=== PATIENT | male | born 1965 | race African-American/Black ===

== ENCOUNTER → 2019-02-27 | Outpatient (CLI) | payer BC ==
[~2019-02-27] MED LIST: CEPH500C PO; ENLP10T; NF-ALLE180; SULF1TAB35 PO; WRF10T PO; WRF5T
== END ==
LOC: WOUNDCARE 13:18
PROVIDERS: ATTEND Surgery
DX: I87.332 Chronic venous hypertension (idiopathic) with ulcer and inflammation of left lower extremity (principal); L97.322 Non-pressure chronic ulcer of left ankle with fat layer exposed; D68.69 Other thrombophilia; Z86.72 Personal history of thrombophlebitis
CPT/HCPCS: 99204

== ENCOUNTER → 2019-02-27 | Outpatient (CLI) | payer BC ==
[2019-02-27 15:26] LABS: BASOPHILS % (AUTO) 0 % (0-10); EOSINOPHILS # (AUTO) 0.1 10^3/uL (0.0-0.3); EOSINOPHILS % (AUTO) 3 % (0-10); HEMATOCRIT 43 % (40-54); HEMOGLOBIN 13.6 G/DL (13.3-17.7); LYMPHOCYTES # (AUTO) 1.9 X 10^3 (1.0-4.0); LYMPHOCYTES % (AUTO) 39 % (12-44); MEAN CORPUSCULAR HEMOGLOBIN 27 PG (25-34); MEAN CORPUSCULAR HGB CONC 32 G/DL (32-36); MEAN CORPUSCULAR VOLUME 85 FL (80-99); MEAN PLATELET VOLUME 9.3 FL (7.4-10.4); MONOCYTES # (AUTO) 0.4 X 10^3 (0.0-1.0); MONOCYTES % (AUTO) 9 % (0-12); NEUTROPHILS # (AUTO) 2.4 X 10^3 (1.8-7.8); NEUTROPHILS % (AUTO) 48 % (42-75); PLATELET COUNT 264 10^3/uL (130-400); RED CELL DISTRIBUTION WIDTH 14.3 % (10.0-14.5); WHITE BLOOD COUNT 4.9 10^3/uL (4.3-11.0)
[2019-02-27 15:44] LABS: ALANINE AMINOTRANSFERASE 25 U/L (0-55); ALBUMIN 4.2 GM/DL (3.2-4.5); ALKALINE PHOSPHATASE 65 U/L (40-136); BILIRUBIN,TOTAL 0.4 MG/DL (0.1-1.0); BUN/CREATININE RATIO 11; CALCIUM 9.1 MG/DL (8.5-10.1); CARBON DIOXIDE 25 MMOL/L (21-32); CHLORIDE 107 MMOL/L (98-107); CREATININE SERUM 1.04 MG/DL (0.60-1.30); GFR ESTIMATED > 60; GLUCOSE 86 MG/DL (70-105); POTASSIUM 4.2 MMOL/L (3.6-5.0); SODIUM 141 MMOL/L (135-145); TOTAL PROTEIN 7.7 GM/DL (6.4-8.2)
== END ==
LOC: LAB 15:04
PROVIDERS: ATTEND Surgery
DX: L97.322 Non-pressure chronic ulcer of left ankle with fat layer exposed (principal); I87.332 Chronic venous hypertension (idiopathic) with ulcer and inflammation of left lower extremity
CPT/HCPCS: 36415; 80053; 83020; 85025

== ENCOUNTER → 2019-03-08 | Outpatient (CLI) | payer BC | LOC: WOUNDCARE 09:37 | PROVIDERS: ATTEND Surgery | DX: L97.322 Non-pressure chronic ulcer of left ankle with fat layer exposed (principal); I87.332 Chronic venous hypertension (idiopathic) with ulcer and inflammation of left lower extremity; D68.69 Other thrombophilia; I96 Gangrene, not elsewhere classified; Z86.72 Personal history of thrombophlebitis | CPT/HCPCS: 11042; 36415; 81240; 85307; 85610; 85613; 85670; 85705; 85730; 86146; 86147; 87070; 87077; 87186; 87205 ==

== ENCOUNTER → 2019-03-11 | Outpatient (CLI) | payer BC | LOC: WOUNDCARE 08:15 | PROVIDERS: ATTEND Surgery | DX: L97.322 Non-pressure chronic ulcer of left ankle with fat layer exposed (principal); I10 Essential (primary) hypertension; I82.409 Acute embolism and thrombosis of unspecified deep veins of unspecified lower extremity | CPT/HCPCS: 29581 ==

== ENCOUNTER → 2019-03-15 | Outpatient (CLI) | payer BC | LOC: WOUNDCARE 09:50 | PROVIDERS: ATTEND Surgery | DX: L97.322 Non-pressure chronic ulcer of left ankle with fat layer exposed (principal); I87.332 Chronic venous hypertension (idiopathic) with ulcer and inflammation of left lower extremity; D68.69 Other thrombophilia; I96 Gangrene, not elsewhere classified; Z86.72 Personal history of thrombophlebitis | CPT/HCPCS: 11042 ==

== ENCOUNTER → 2019-03-22 | Outpatient (CLI) | payer BC | LOC: WOUNDCARE 08:56 | PROVIDERS: ATTEND Nurse Practitioner | DX: L97.322 Non-pressure chronic ulcer of left ankle with fat layer exposed (principal); I87.332 Chronic venous hypertension (idiopathic) with ulcer and inflammation of left lower extremity; I96 Gangrene, not elsewhere classified; D68.69 Other thrombophilia; Z86.72 Personal history of thrombophlebitis | CPT/HCPCS: 11042; 11045 ==

== ENCOUNTER → 2019-03-29 | Outpatient (CLI) | payer BC | LOC: WOUNDCARE 10:03 | PROVIDERS: ATTEND Surgery | DX: L97.322 Non-pressure chronic ulcer of left ankle with fat layer exposed (principal); I87.332 Chronic venous hypertension (idiopathic) with ulcer and inflammation of left lower extremity; I96 Gangrene, not elsewhere classified; Z86.72 Personal history of thrombophlebitis | CPT/HCPCS: 11042 ==

== ENCOUNTER → 2019-04-05 | Outpatient (CLI) | payer BC | LOC: WOUNDCARE 09:58 | PROVIDERS: ATTEND Surgery | DX: L97.322 Non-pressure chronic ulcer of left ankle with fat layer exposed (principal); I87.332 Chronic venous hypertension (idiopathic) with ulcer and inflammation of left lower extremity; I96 Gangrene, not elsewhere classified; Z86.72 Personal history of thrombophlebitis | CPT/HCPCS: 29581 ==

== ENCOUNTER → 2019-04-12 | Outpatient (CLI) | payer BC | LOC: WOUNDCARE 10:03 | PROVIDERS: ATTEND Surgery | DX: L97.322 Non-pressure chronic ulcer of left ankle with fat layer exposed (principal); I87.332 Chronic venous hypertension (idiopathic) with ulcer and inflammation of left lower extremity; I96 Gangrene, not elsewhere classified; Z86.72 Personal history of thrombophlebitis | CPT/HCPCS: 99212 ==

== ENCOUNTER 2019-04-26 08:51 | Outpatient (RCR) | payer BC | END 2019-05-14 14:09 | disposition home or self-care (01) | PROVIDERS: ATTEND Surgery | DX: L97.329 Non-pressure chronic ulcer of left ankle with unspecified severity (principal); M25.572 Pain in left ankle and joints of left foot; Z86.718 Personal history of other venous thrombosis and embolism ==

== ENCOUNTER → 2019-04-26 | Outpatient (CLI) | payer BC | LOC: WOUNDCARE 09:55 | PROVIDERS: ATTEND Surgery | DX: I87.332 Chronic venous hypertension (idiopathic) with ulcer and inflammation of left lower extremity (principal); L97.322 Non-pressure chronic ulcer of left ankle with fat layer exposed; I96 Gangrene, not elsewhere classified; Z86.72 Personal history of thrombophlebitis | CPT/HCPCS: 99213 ==

== ENCOUNTER → 2019-05-10 | Outpatient (CLI) | payer BC | LOC: WOUNDCARE 10:01 | PROVIDERS: ATTEND Surgery | DX: L97.322 Non-pressure chronic ulcer of left ankle with fat layer exposed (principal); I87.332 Chronic venous hypertension (idiopathic) with ulcer and inflammation of left lower extremity; I96 Gangrene, not elsewhere classified; Z86.72 Personal history of thrombophlebitis | CPT/HCPCS: 99212 ==

== ENCOUNTER → 2021-04-12 | Outpatient (CLI) | payer BC | LOC: WOUNDCARE 08:45 | PROVIDERS: ATTEND Surgery | DX: I87.332 Chronic venous hypertension (idiopathic) with ulcer and inflammation of left lower extremity (principal); L97.322 Non-pressure chronic ulcer of left ankle with fat layer exposed; I89.0 Lymphedema, not elsewhere classified | CPT/HCPCS: A6197; A6253; G0463; 99214 ==

== ENCOUNTER → 2021-04-21 | Outpatient (CLI) | payer BC | LOC: WOUNDCARE 08:50 | PROVIDERS: ATTEND Surgery | DX: I87.332 Chronic venous hypertension (idiopathic) with ulcer and inflammation of left lower extremity (principal); I96 Gangrene, not elsewhere classified; L97.322 Non-pressure chronic ulcer of left ankle with fat layer exposed; I89.0 Lymphedema, not elsewhere classified; L03.116 Cellulitis of left lower limb | CPT/HCPCS: A6260; G0463; 99213 ==

== ENCOUNTER → 2021-04-23 | Outpatient (CLI) | payer BC | LOC: WOUNDCARE 08:04 | PROVIDERS: ATTEND Surgery | DX: I87.332 Chronic venous hypertension (idiopathic) with ulcer and inflammation of left lower extremity (principal); L97.322 Non-pressure chronic ulcer of left ankle with fat layer exposed; I89.0 Lymphedema, not elsewhere classified; L03.116 Cellulitis of left lower limb; I96 Gangrene, not elsewhere classified | CPT/HCPCS: 99213 ==

== ENCOUNTER → 2021-04-28 | Outpatient (CLI) | payer BC | LOC: WOUNDCARE 14:01 | PROVIDERS: ATTEND Surgery | DX: I87.332 Chronic venous hypertension (idiopathic) with ulcer and inflammation of left lower extremity (principal); I96 Gangrene, not elsewhere classified; L97.322 Non-pressure chronic ulcer of left ankle with fat layer exposed; I89.0 Lymphedema, not elsewhere classified; L03.116 Cellulitis of left lower limb | CPT/HCPCS: 11042; A6207; A6253; G0463 ==

== ENCOUNTER → 2021-04-30 | Outpatient (CLI) | payer BC | LOC: WOUNDCARE 08:22 | PROVIDERS: ATTEND Surgery | DX: I87.332 Chronic venous hypertension (idiopathic) with ulcer and inflammation of left lower extremity (principal); I96 Gangrene, not elsewhere classified | CPT/HCPCS: 29581; A6253; G0463 ==

== ENCOUNTER → 2021-05-04 | Outpatient (CLI) | payer BC | LOC: WOUNDCARE 15:05 | PROVIDERS: ATTEND Surgery | DX: I87.332 Chronic venous hypertension (idiopathic) with ulcer and inflammation of left lower extremity (principal); I96 Gangrene, not elsewhere classified; I82.492 Acute embolism and thrombosis of other specified deep vein of left lower extremity ==

== ENCOUNTER → 2021-05-07 | Outpatient (CLI) | payer BC | LOC: WOUNDCARE 08:13 | PROVIDERS: ATTEND Surgery | DX: I87.332 Chronic venous hypertension (idiopathic) with ulcer and inflammation of left lower extremity (principal); I96 Gangrene, not elsewhere classified; L97.322 Non-pressure chronic ulcer of left ankle with fat layer exposed; I89.0 Lymphedema, not elsewhere classified; L03.116 Cellulitis of left lower limb | CPT/HCPCS: 11042; A6207; A6253; G0463 ==

== ENCOUNTER → 2021-05-10 | Outpatient (CLI) | payer BC | LOC: WOUNDCARE 15:05 | PROVIDERS: ATTEND Surgery | DX: I87.332 Chronic venous hypertension (idiopathic) with ulcer and inflammation of left lower extremity (principal); I96 Gangrene, not elsewhere classified | CPT/HCPCS: 29581; A6253; G0463 ==

== ENCOUNTER → 2021-05-14 | Outpatient (CLI) | payer BC | LOC: WOUNDCARE 08:17 | PROVIDERS: ATTEND Surgery | DX: I87.332 Chronic venous hypertension (idiopathic) with ulcer and inflammation of left lower extremity (principal); L97.322 Non-pressure chronic ulcer of left ankle with fat layer exposed; I89.0 Lymphedema, not elsewhere classified; L03.116 Cellulitis of left lower limb; I96 Gangrene, not elsewhere classified | CPT/HCPCS: 11042; A6207; A6253; G0463 ==

== ENCOUNTER → 2021-05-18 | Outpatient (CLI) | payer BC | LOC: WOUNDCARE 15:05 | PROVIDERS: ATTEND Surgery | DX: I87.332 Chronic venous hypertension (idiopathic) with ulcer and inflammation of left lower extremity (principal); L97.322 Non-pressure chronic ulcer of left ankle with fat layer exposed | CPT/HCPCS: 29581; A6253; G0463 ==

== ENCOUNTER → 2021-05-21 | Outpatient (CLI) | payer BC | LOC: WOUNDCARE 10:03 | PROVIDERS: ATTEND Surgery | DX: I87.332 Chronic venous hypertension (idiopathic) with ulcer and inflammation of left lower extremity (principal); I96 Gangrene, not elsewhere classified; I89.0 Lymphedema, not elsewhere classified; L97.322 Non-pressure chronic ulcer of left ankle with fat layer exposed; L03.116 Cellulitis of left lower limb | CPT/HCPCS: 29581; G0463 ==

== ENCOUNTER → 2021-05-25 | Outpatient (CLI) | payer BC | LOC: WOUNDCARE 15:02 | PROVIDERS: ATTEND Surgery | DX: I87.332 Chronic venous hypertension (idiopathic) with ulcer and inflammation of left lower extremity (principal) | CPT/HCPCS: 29581; A6207; G0463 ==

== ENCOUNTER → 2021-05-28 | Outpatient (CLI) | payer BC | LOC: WOUNDCARE 08:14 | PROVIDERS: ATTEND Surgery | DX: I87.332 Chronic venous hypertension (idiopathic) with ulcer and inflammation of left lower extremity (principal); I96 Gangrene, not elsewhere classified; L97.222 Non-pressure chronic ulcer of left calf with fat layer exposed; I89.0 Lymphedema, not elsewhere classified | CPT/HCPCS: 29581; G0463 ==

== ENCOUNTER → 2021-06-04 | Outpatient (CLI) | payer BC | LOC: WOUNDCARE 09:10 | PROVIDERS: ATTEND Surgery | DX: I87.332 Chronic venous hypertension (idiopathic) with ulcer and inflammation of left lower extremity (principal); I96 Gangrene, not elsewhere classified; L97.322 Non-pressure chronic ulcer of left ankle with fat layer exposed; I89.0 Lymphedema, not elsewhere classified | CPT/HCPCS: 29581; G0463 ==

== ENCOUNTER → 2021-06-11 | Outpatient (CLI) | payer BC | LOC: WOUNDCARE 08:18 | PROVIDERS: ATTEND Surgery | DX: I87.332 Chronic venous hypertension (idiopathic) with ulcer and inflammation of left lower extremity (principal); L97.322 Non-pressure chronic ulcer of left ankle with fat layer exposed; I89.0 Lymphedema, not elsewhere classified; I96 Gangrene, not elsewhere classified | CPT/HCPCS: 29581; G0463 ==

== ENCOUNTER → 2021-06-18 | Outpatient (CLI) | payer BC | LOC: WOUNDCARE 08:30 | PROVIDERS: ATTEND Family Medicine | DX: I87.332 Chronic venous hypertension (idiopathic) with ulcer and inflammation of left lower extremity (principal); L97.322 Non-pressure chronic ulcer of left ankle with fat layer exposed; I89.0 Lymphedema, not elsewhere classified; I96 Gangrene, not elsewhere classified | CPT/HCPCS: 29581; G0463 ==

== ENCOUNTER → 2021-06-25 | Outpatient (CLI) | payer BC | LOC: WOUNDCARE 08:18 | PROVIDERS: ATTEND Family Medicine | DX: I87.332 Chronic venous hypertension (idiopathic) with ulcer and inflammation of left lower extremity (principal); L97.322 Non-pressure chronic ulcer of left ankle with fat layer exposed; I89.0 Lymphedema, not elsewhere classified; I96 Gangrene, not elsewhere classified | CPT/HCPCS: 29581; G0463 ==

== ENCOUNTER → 2021-07-02 | Outpatient (CLI) | payer BC | LOC: WOUNDCARE 08:16 | PROVIDERS: ATTEND Family Medicine | DX: I87.302 Chronic venous hypertension (idiopathic) without complications of left lower extremity (principal); I89.0 Lymphedema, not elsewhere classified | CPT/HCPCS: 29581; G0463 ==

== ENCOUNTER → 2021-07-09 | Outpatient (CLI) | payer BC | LOC: WOUNDCARE 08:15 | PROVIDERS: ATTEND Family Medicine | DX: Z53.9 Procedure and treatment not carried out, unspecified reason (principal) | CPT/HCPCS: 99212 ==

== ENCOUNTER → 2022-05-04 | Outpatient (CLI) | payer BC | LOC: WOUNDCARE 09:03 | PROVIDERS: ATTEND Family Medicine | DX: L97.322 Non-pressure chronic ulcer of left ankle with fat layer exposed (principal); I87.312 Chronic venous hypertension (idiopathic) with ulcer of left lower extremity; A49.9 Bacterial infection, unspecified; I89.0 Lymphedema, not elsewhere classified; Z68.35 Body mass index [BMI] 35.0-35.9, adult | CPT/HCPCS: 11042; 87070; 87205; A6207; A6212; G0463; 87186 ==

== ENCOUNTER → 2022-05-10 | Outpatient (CLI) | payer BC | LOC: WOUNDCARE 09:58 | PROVIDERS: ATTEND Family Medicine | DX: L97.322 Non-pressure chronic ulcer of left ankle with fat layer exposed (principal); I87.312 Chronic venous hypertension (idiopathic) with ulcer of left lower extremity; A49.9 Bacterial infection, unspecified; I89.0 Lymphedema, not elsewhere classified; Z68.35 Body mass index [BMI] 35.0-35.9, adult; G90.09 Other idiopathic peripheral autonomic neuropathy; E55.9 Vitamin D deficiency, unspecified; B37.2 Candidiasis of skin and nail; I96 Gangrene, not elsewhere classified | CPT/HCPCS: 11042; A6207; G0463 ==

== ENCOUNTER → 2022-05-13 | Outpatient (CLI) | payer BC | LOC: WOUNDCARE 08:16 | PROVIDERS: ATTEND Family Medicine | DX: L97.329 Non-pressure chronic ulcer of left ankle with unspecified severity (principal) | CPT/HCPCS: 29581; G0463 ==

== ENCOUNTER → 2022-05-17 | Outpatient (CLI) | payer BC ==
--- NOTE | 2022-05-17 11:53 | Diagnostic Imaging Report ---
CLINICAL HISTORY: Left-sided ankle pain. Ulcer on the medial side of the left foot and ankle. COMPARISON: None. TECHNIQUE: Three views of the left ankle. FINDINGS: There is no acute fracture or dislocation of the left ankle. Alignment is anatomic. Degenerative changes are present with marginal osteophytes. There is soft tissue edema and swelling along the medial aspect of the left ankle/left foot. IMPRESSION: 1. No acute fracture or dislocation of the left ankle. 2. Soft tissue edema and swelling along the medial aspect of the left ankle and left foot, corresponding to the history of ulcer. Dictated by: Dictated on workstation # [id number]
== END ==
LOC: WOUNDCARE 08:16
PROVIDERS: ATTEND Family Medicine
DX: I87.312 Chronic venous hypertension (idiopathic) with ulcer of left lower extremity (principal)
CPT/HCPCS: 73610; A6207; A6212; G0463; 99212

== ENCOUNTER → 2022-05-20 | Outpatient (CLI) | payer BC | LOC: WOUNDCARE 08:11 | PROVIDERS: ATTEND Family Medicine | DX: L97.322 Non-pressure chronic ulcer of left ankle with fat layer exposed (principal); I87.312 Chronic venous hypertension (idiopathic) with ulcer of left lower extremity; A49.9 Bacterial infection, unspecified; I89.0 Lymphedema, not elsewhere classified; E55.9 Vitamin D deficiency, unspecified; G90.09 Other idiopathic peripheral autonomic neuropathy; B37.2 Candidiasis of skin and nail; I96 Gangrene, not elsewhere classified; Z68.35 Body mass index [BMI] 35.0-35.9, adult | CPT/HCPCS: 11042; G0463 ==

== ENCOUNTER → 2022-05-27 | Outpatient (CLI) | payer BC | LOC: WOUNDCARE 08:18 | PROVIDERS: ATTEND Family Medicine | DX: L97.322 Non-pressure chronic ulcer of left ankle with fat layer exposed (principal); I87.312 Chronic venous hypertension (idiopathic) with ulcer of left lower extremity; A49.9 Bacterial infection, unspecified; I89.0 Lymphedema, not elsewhere classified; Z68.35 Body mass index [BMI] 35.0-35.9, adult; E55.9 Vitamin D deficiency, unspecified; G90.09 Other idiopathic peripheral autonomic neuropathy; I96 Gangrene, not elsewhere classified | CPT/HCPCS: 11042; A6207; A6212; G0463 ==

== ENCOUNTER → 2022-06-03 | Outpatient (CLI) | payer BC | LOC: WOUNDCARE 08:16 | PROVIDERS: ATTEND Family Medicine | DX: L97.322 Non-pressure chronic ulcer of left ankle with fat layer exposed (principal); I87.312 Chronic venous hypertension (idiopathic) with ulcer of left lower extremity; A49.9 Bacterial infection, unspecified; I89.0 Lymphedema, not elsewhere classified; G90.09 Other idiopathic peripheral autonomic neuropathy; E55.9 Vitamin D deficiency, unspecified; B37.2 Candidiasis of skin and nail; I96 Gangrene, not elsewhere classified; Z68.35 Body mass index [BMI] 35.0-35.9, adult; Z79.01 Long term (current) use of anticoagulants | CPT/HCPCS: 11042; 11045; 87070; 87077; 87186; 87205; G0463 ==

== ENCOUNTER → 2022-06-10 | Outpatient (CLI) | payer BC | LOC: WOUNDCARE 08:14 | PROVIDERS: ATTEND Family Medicine | DX: I87.332 Chronic venous hypertension (idiopathic) with ulcer and inflammation of left lower extremity (principal); I96 Gangrene, not elsewhere classified; A49.9 Bacterial infection, unspecified; L97.322 Non-pressure chronic ulcer of left ankle with fat layer exposed; I89.0 Lymphedema, not elsewhere classified; G90.09 Other idiopathic peripheral autonomic neuropathy; E55.9 Vitamin D deficiency, unspecified; Z79.01 Long term (current) use of anticoagulants; Z68.35 Body mass index [BMI] 35.0-35.9, adult | CPT/HCPCS: 11042; A6212; G0463 ==

== ENCOUNTER → 2022-06-17 | Outpatient (CLI) | payer BC | LOC: WOUNDCARE 08:16 | PROVIDERS: ATTEND Family Medicine | DX: I87.312 Chronic venous hypertension (idiopathic) with ulcer of left lower extremity (principal); I96 Gangrene, not elsewhere classified; L97.322 Non-pressure chronic ulcer of left ankle with fat layer exposed; A49.9 Bacterial infection, unspecified; I89.0 Lymphedema, not elsewhere classified; G90.09 Other idiopathic peripheral autonomic neuropathy; E55.9 Vitamin D deficiency, unspecified; Z79.01 Long term (current) use of anticoagulants; Z68.35 Body mass index [BMI] 35.0-35.9, adult | CPT/HCPCS: 11042; A6212; G0463 ==

== ENCOUNTER → 2022-06-24 | Outpatient (CLI) | payer BC | LOC: WOUNDCARE 08:18 | PROVIDERS: ATTEND Family Medicine | DX: I87.312 Chronic venous hypertension (idiopathic) with ulcer of left lower extremity (principal); I89.0 Lymphedema, not elsewhere classified; G90.09 Other idiopathic peripheral autonomic neuropathy; E55.9 Vitamin D deficiency, unspecified; Z68.35 Body mass index [BMI] 35.0-35.9, adult; Z79.01 Long term (current) use of anticoagulants | CPT/HCPCS: 99212 ==

== ENCOUNTER → 2023-01-19 | Outpatient (CLI) | payer BC | LOC: WOUNDCARE 13:03 | PROVIDERS: ATTEND Family Medicine | DX: I87.312 Chronic venous hypertension (idiopathic) with ulcer of left lower extremity (principal); L84 Corns and callosities; I89.0 Lymphedema, not elsewhere classified; L97.321 Non-pressure chronic ulcer of left ankle limited to breakdown of skin | CPT/HCPCS: 11042 ==

== ENCOUNTER → 2023-01-27 | Outpatient (CLI) | payer BC | LOC: WOUNDCARE 08:14 | PROVIDERS: ATTEND Family Medicine | DX: I87.312 Chronic venous hypertension (idiopathic) with ulcer of left lower extremity (principal); I89.0 Lymphedema, not elsewhere classified; L84 Corns and callosities; L97.321 Non-pressure chronic ulcer of left ankle limited to breakdown of skin | CPT/HCPCS: 99213 ==